=== PATIENT | male | born 1960 | race Caucasian/White ===

== ENCOUNTER 2020-05-27 01:04 | Outpatient (CLI) | payer BC, SELFPAY ==
[2020-05-27 19:05] LABS: SARS-CoV-2 RNA PCR Negative
== END 2020-05-27 01:05 | disposition home or self-care (01) ==
LOC: ANHCOVIDDT 01:04
PROVIDERS: Visit Provider Internal Medicine Cardiovascular Disease
DX: Z01.812 Encounter for preprocedural laboratory examination (principal); Z20.828 Contact with and (suspected) exposure to other viral communicable diseases
CPT/HCPCS: 87635; C9803; U0003

== ENCOUNTER 2020-05-29 05:20 | Day surgery (SDC) | payer BC, SELFPAY ==
[2020-05-28 16:38] VITALS: BMI 25.4
[2020-05-29] VITALS (16 sets, daily range): BP systolic 116–161; BP diastolic 71–98; PULSE 62–83; RESP 11–20; TEMP 36.1–36.9; O2SAT 98–100; BMI 25.2
[2020-05-29 07:50] LABS: Basophils Percent Auto 0.6 % (0.2-1.2); Eosinophils Absolute Auto 0.4 K/mm3 (0-0.3); Hemoglobin 13.7 g/dL (14.0-18.0); Immature Granulocyte Absolute 0.02 K/mm3 (0.00-0.031); Immature Granulocyte Percent A 0.3 % (0-0.5); Lymphocytes Absolute Auto 3.08 K/mm3 (0.9-3.2); Lymphocytes Percent Auto 43.9 % (18.3-44.2); Mean Corpuscular HGB Conc 33.4 g/dl (32-36); Mean Corpuscular Hemoglobin 29.6 pg (26-34); Mean Corpuscular Volume 88.6 fl (80-100); Mean Platelet Volume 9.3 fl (7.4-10.4); Monocytes Absolute Auto 0.7 K/mm3 (0.1-0.6); Monocytes Percent Auto 9.3 % (2.6-8.5); Neutrophils Absolute Auto 2.9 K/mm3 (1.3-6.7); Neutrophils Percent Auto 40.9 % (45.5-73.1); Platelet Count Result 254 k/mm3 (150-375); Red Blood Count 4.63 M/mm3 (4.6-6.20); Red Cell Distribution Width 12.7 % (11.5-14.5)
--- NOTE | 2020-05-29 07:54 | SUR.PREOP ---
Patient arrives ambulatory to [facility] room 7 accompanied by . PIV access initiated, ordered labs obtained, VSS, and groins prepped for procedure.Patient updated on plan of care, including detailed description of procedure and after procedure care, and verbalizes understanding. All questions answered by RN. Will continue to closely monitor patient.
[2020-05-29 07:55] LABS: Anion Gap 8 mmol/L (8-16); Blood Urea Nitrogen 15 mg/dL (9-20); Calcium 9.4 mg/dL (8.4-10.2); Carbon Dioxide 25 mmol/L (22-30); Chloride 107 mmol/L (98-107); Estimated CRCL calculation 79 ml/min; Estimated Glomerular Filt Rate > 60; Glucose 108 mg/dL (75-110); Potassium 4.1 mmol/L (3.4-5.0); Sodium 140 mmol/L (137-145)
--- NOTE | 2020-05-29 08:25 | PM.IMHP ---
H&P: HPI History of Present Illness Date/Time: 05/29/20 08:25 Chief complaint: Abnormal Stress test, Chest Pain Narrative: Kai Granger is a 59 year old male Past medical history of anterior STEMI who presents here for cardiac catheterization because of chest pain and abnormal stress test. Started the chest pain about couple months ago. Denies shortness of breath, lower limb edema, dizziness, syncope, orthopnea, paroxysmal nocturnal dyspnea. Review of Systems Review of Systems: All systems reviewed & are unremarkable except as noted in HPI and below Constitutional: Constitutional: Denies chills, Denies fatigue, Denies fever(s), Denies headache(s) and Denies snoring Eyes: Eyes: Denies eye discharge and Denies loss of vision ENT: Denies dizziness, Denies headache(s), Denies nasal discharge and Denies sore throat Cardiovascular: Cardiovascular: Reports as per HPI, Reports chest pain, Reports chest pain with activity, Denies syncope, Denies rapid heart rate, Denies leg edema, Denies dyspnea, Denies dyspnea on exertion, Denies orthopnea and Denies paroxysmal nocturnal dyspnea Respiratory: Respiratory: Denies chest congestion, Denies cough, Denies dyspnea, Denies dyspnea on exertion, Denies snoring and Denies wheezing Gastrointestinal: Gastrointestinal: Denies abdominal pain, Denies diarrhea, Denies nausea and Denies vomiting Genitourinary: Genitourinary: Denies hematuria, Denies dysuria, Denies flank pain and Denies urinary frequency Musculoskeletal: Musculoskeletal: Denies myalgias, Denies arthralgias and Denies joint swelling Neurologic: Denies Abnormal speech present, Denies dizziness, Denies syncope, Denies headache(s), Denies focal weakness and Denies loss of vision Psychiatric: Psychiatric: Denies anxiety and Denies depression Endocrine: Endocrine: Denies cold intolerance, Denies fatigue and Denies heat intolerance Hematologic/Lymphatic: Hematologic/Lymphatic: Denies easy bleeding and Denies easy bruising Allergic/Immunologic: Allergic/Immunologic: Denies urticaria and Denies wheezing PMFSH Past Medical History Medical History (Updated 05/29/20 @ 08:26 by Cassie King MD) Alcohol abuse Anxiety CAD (coronary artery disease) HLD (hyperlipidemia) HTN (hypertension) Myocardial infarction Seasonal allergies Surgical History Surgical History H/O cardiac catheterization H/O heart artery stent x2 History of appendectomy Family History Family History Other Diabetes mellitus Family history of coronary artery disease Social History Social History Smoking status: Never smoker Second hand tobacco smoke exposure: Yes Alcohol intake: current Living arrangements: with family Meds Home Medications and Allergies Home Medications Medication Instructions Recorded Confirmed Type atorvastatin 40 mg PO DAILY 07/08/19 05/28/20 History bupropion HCl 300 mg PO QPM 07/08/19 05/28/20 History ezetimibe 10 mg PO DAILY 07/08/19 05/28/20 History hydroxyzine HCl 25 mg PO HS PRN 07/08/19 05/28/20 History aspirin 81 mg PO DAILY 05/28/20 05/28/20 History Allergies Allergy/AdvReac Type Severity Reaction Status Date / Time No Known Allergies Allergy Verified 03/28/20 13:09 Vital Signs Vital Signs - 24 hr 05/29/20 07:45 Temperature 36.4 C Pulse Rate 76 Respiratory Rate 15 Blood Pressure 139/85 Pulse Oximetry 99 Exam Const: General: cooperative, healthy appearing, comfortable, no acute distress and well developed Nutritional Appearance: well nourished Orientation/consciousness: patient oriented x3 HENMT: Head: normal to inspection, normocephalic and atraumatic Ears: hearing grossly normal bilaterally and external ears normal General nose exam: Normal external nose present and Normal nares present Face and sinus: normal fac
--- NOTE | 2020-05-29 08:27 | WPDMODSED ---
Moderate Sedation Note-Pt Data Patient Data Allergies Allergy/AdvReac Type Severity Reaction Status Date / Time No Known Allergies Allergy Verified 03/28/20 13:09 Home Medications Medication Instructions Recorded Confirmed Type atorvastatin 40 mg PO DAILY 07/08/19 05/28/20 History bupropion HCl 300 mg PO QPM 07/08/19 05/28/20 History ezetimibe 10 mg PO DAILY 07/08/19 05/28/20 History hydroxyzine HCl 25 mg PO HS PRN 07/08/19 05/28/20 History aspirin 81 mg PO DAILY 05/28/20 05/28/20 History Current Medications: Active Medications Sodium Chloride (Normal Saline Iv) 500 mls @ 100 mls/hr IV CONT .Q5H CAMILO Sedation/Anesthesia: No previous sedation/anesthesia problems (including family history). [facility] Past Medical History Medical History (Updated 05/29/20 @ 08:26 by Cassie King MD) Alcohol abuse Anxiety CAD (coronary artery disease) HLD (hyperlipidemia) HTN (hypertension) Myocardial infarction Seasonal allergies Surgical History Surgical History H/O cardiac catheterization H/O heart artery stent x2 History of appendectomy Family History Family History Other Diabetes mellitus Family history of coronary artery disease Social History Social History Smoking status: Never smoker Second hand tobacco smoke exposure: Yes Alcohol intake: current Living arrangements: with family Mod Sed Physical Exam Physical Exam Pre Procedural Exam: Normal: Appearance, Eyes, Ears, Nose, Neck, Throat, Airway, Lungs, Heart Size, Heart Rate, Heart Rhythm, Neuro Exam, Abdomen, Liver, Kidneys, Spleen, Breasts, Genitalia, Extremities and Skin Hours since solid foods: 8 Hours since liquid intake: 8 Internal Medicine - PN: Obj Da Vital Signs Vital Signs: Vital Signs - 24 hr 05/29/20 07:45 Temperature 36.4 C Pulse Rate 76 Respiratory Rate 15 Blood Pressure 139/85 Pulse Oximetry 99 Meds/Results Medications: Active Medications Generic Name Dose Route Start Last Admin Trade Name Freq PRN Reason Stop Dose Admin Sodium Chloride 500 mls @ 100 mls/hr 05/29/20 06:35 Normal Saline Iv IV CONT .Q5H CAMILO Labs CBC & Chem 7: 05/29/20 07:39 05/29/20 07:39 Labs: Laboratory Results - last 24 hr 05/29/20 05/29/20 07:39 07:39 WBC 7.0 RBC 4.63 Hgb 13.7 L D Hct 41.0 L MCV 88.6 MCH 29.6 MCHC 33.4 RDW 12.7 Plt Count 254 MPV 9.3 Immature Gran % (Auto) 0.3 Neut % (Auto) 40.9 L Lymph % (Auto) 43.9 [place] % (Auto) 9.3 H Eos % (Auto) 5.0 H Baso % (Auto) 0.6 Lymph # (Auto) 3.08 [place] # (Auto) 0.7 H Eos # (Auto) 0.4 H Baso # (Auto) 0.0 Abs Immat Gran (auto) 0.02 Absolute Neuts (auto) 2.9 Absolute Nucleated RBC 0.0 Nucleated RBC % 0.0 Sodium 140 Potassium 4.1 Chloride 107 Carbon Dioxide 25 Anion Gap 8 BUN 15 Creatinine 0.90 Estim Creat Clear Calc 79 Estimated GFR > 60 Glucose 108 Calcium 9.4 ASA Classification/Sedation ASA Classification/Sedation ASA Class: I Emergent: No Risks: Risks, benefits and alternatives explained and patient/family accepted plan for sedation. Patient re-evaluated immediately prior to sedation.
--- NOTE | 2020-05-29 08:27 | WPDCARDPROC ---
Cardiac Cath Procedure Note Date of procedure:: 05/29/20 Performing physician:: Cassie King MD Date of service May 29, 2020 Indication:: abnormal stress test, chest pain Brief clinical history:: this is 59-year-old patient with a past medical history STEMI with stenting of mid LAD, hypertension hyperlipidemia who was evaluated for a couple months history of chest pain and underwent stress test that shows ischemia. Procedure Procedure performed:: 1-Moderate sedation that started at 830 am and ended at 945 am with total duration 75 minutes using 4mg of Versed and 125mcg fentanyl. The registered nurse was Kassie Awan 2-Selective left and right coronary angiogram. 3-Left heart catheterization with measurement of LVEDP and measurement of gradient across aortic valve. 4-Right common femoral arterial angiogram. 5-Deployment of 6 [place]ian Angio-Seal. 7- deployment of a drug-eluting stent 3.25 x 38 to mid left circumflex artery. 8- Deployment drug-eluting stent 3 x 8 distal to the mid left circumflex artery in overlapping fashion. Sedation/Medication given:: Moderate sedation. Access site:: Right common femoral artery. Estimated blood loss:: 10cc Procedure note:: After informed consent patient was brought in to refuse laborer with the was draped and prepped in usual manner. Moderate sedation was given and the right groin was infiltrated using 1% lidocaine. Five Slovenian sheath was obtained using micropuncture needle and the modified Seldinger technique. Selective left coronary angiogram was done using JL4 catheter with the tip of the catheter placed in the left main coronary artery. Selective right coronary angiogram was done using JR4 catheter with the tip of the catheter placed to the right coronary artery. After that 5 Slovenian pigtail catheter was advanced across the aortic valve into the left ventricle with measurement of LVEDP and measurement of gradient across aortic valve. After that the 5 Slovenian sheath was upgraded to 6 Slovenian sheath. Then luge coronary wire 0.014 was advanced to the distal left circumflex artery. Then a 3 x 20 balloon was used to pre dilate the lesion in the mid left circumflex artery with 2 inflations each under nominal pressure for 20 seconds. after the deployment with drug-eluting stent 3.25 x 38 to mid left circumflex artery under nominal pressure for 20 seconds. after that postdilatation of the stent specially the midportion of the stent using 3.5x20 noncompliant balloon a with inflation done under 14 atmospheres for 20 seconds. after the deployment of a drug-eluting stent 3 x 8 distal to the mid left circumflex artery stent in overlapping fashion. Under nominal pressure for 20 seconds. the stent balloon was inflated to 22 atmospheres in overlapping area and that was done for about 20 seconds. Right common femoral arterial angiogram was done. Angio-Seal was deployed. Findings:: 1- left coronary artery is a large artery that divides into large LAD, large circumflex artery. Left main is free of disease. 2- left anterior descending artery is a large artery that runs and wraps around the apex. It has patent stents in the mid segment. 3- leftcircumflex artery is a large artery and has about 70% stenosis in the mid segment. from the midportion of that stenosis there is a medium-sized diagonal branch that has no disease in the ostium after putting the stent there was about 30% stenosis. 4- right coronary artery is large artery and dominant with diffuse minimal irregularities. 5- LVEDP was 10 mmhg and no gradient across aortic valve. 6- opening arterial pressure was 140/80 and closing pressure was 160/80 7- right femoral artery angiogram shows no significant disease in the right common femoral artery. Conclusion:: 1- successful stenting of mid left circumflex artery and distal left circumflex artery in overlapping fashion. 2- patent stents in the mid LAD. Assessment and Plan Additional Plan 1- continue aspirin and Brilinta.
[2020-05-29] MEDS: SODIUM CHLORIDE 0.9% IV 1,000 ML 125 ML IV CONT (10:00)
--- NOTE | 2020-05-29 10:00 | ECG_ITS ---
Measurements Intervals [place] Rate: 71 P: 60 CA: 162 QRS: 66 QRSD: 114 T: 67 QT: 376 QTc: 411 Interpretive Statements SINUS RHYTHM INCOMPLETE RIGHT BUNDLE BRANCH BLOCK BASELINE ARTIFACT- II, III BORDERLINE ECG Electronically Signed On 05-29-2020 13:27:22 CDT by Jay Humphrey D.O.
[2020-05-29] MEDS: TICAGRELOR 90 MG TABLET PO (20:15)
[2020-05-29] MEDS: ATORVASTATIN 40 MG TABLET PO (20:15)
[2020-05-29] MEDS: EZETIMIBE 10 MG TABLET PO (20:15)
[2020-05-30] VITALS (7 sets, daily range): BP systolic 116–136; BP diastolic 82–95; PULSE 71–79; RESP 15–20; TEMP 36.2–36.8; O2SAT 100
[2020-05-30 05:18] LABS: Basophils Percent Auto 0.3 % (0.2-1.2); Eosinophils Absolute Auto 0.4 K/mm3 (0-0.3); Eosinophils Percent Auto 4.5 % (0-4.4); Hematocrit 41.9 % (42.0-52.0); Hemoglobin 13.8 g/dL (14.0-18.0); Immature Granulocyte Absolute 0.02 K/mm3 (0.00-0.031); Immature Granulocyte Percent A 0.2 % (0-0.5); Lymphocytes Absolute Auto 2.79 K/mm3 (0.9-3.2); Lymphocytes Percent Auto 31.1 % (18.3-44.2); Mean Corpuscular HGB Conc 32.9 g/dl (32-36); Mean Corpuscular Hemoglobin 29.6 pg (26-34); Mean Corpuscular Volume 89.7 fl (80-100); Mean Platelet Volume 9.4 fl (7.4-10.4); Monocytes Absolute Auto 0.7 K/mm3 (0.1-0.6); Monocytes Percent Auto 8.2 % (2.6-8.5); Neutrophils Percent Auto 55.7 % (45.5-73.1); Platelet Count Result 234 k/mm3 (150-375); Red Blood Count 4.67 M/mm3 (4.6-6.20); Red Cell Distribution Width 12.8 % (11.5-14.5)
[2020-05-30 05:29] LABS: Anion Gap 7 mmol/L (8-16); Blood Urea Nitrogen 11 mg/dL (9-20); Calcium 9.4 mg/dL (8.4-10.2); Carbon Dioxide 28 mmol/L (22-30); Chloride 105 mmol/L (98-107); Estimated CRCL calculation 79 ml/min; Estimated Glomerular Filt Rate > 60; Glucose 102 mg/dL (75-110); Potassium 4.1 mmol/L (3.4-5.0); Sodium 140 mmol/L (137-145)
[2020-05-30] MEDS: ASPIRIN 81 MG CHEWABLE TABLET PO (08:35)
[2020-05-30] MEDS: TICAGRELOR 90 MG TABLET PO (08:35)
[2020-05-30] MEDS: buPROPion HCL XL (24 HR) 150 MG TABCR 300 MG PO (08:35)
--- NOTE | 2020-05-30 10:23 | PM.DS ---
DS: Admitting Diagnosis Admitting Diagnosis Admitting Diagnosis: Abnormal Stress test, Chest Pain DS: Discharge Diagnosis Discharge Diagnosis (1) Chest pain: Code(s): R07.9 - Chest pain, unspecified Status: Acute Assessment and Plan: Cardiac catheterization 05/29/[address] King with the findings of: 1- left coronary artery is a large artery that divides into large LAD, large circumflex artery. Left main is free of disease. 2- left anterior descending artery is a large artery that runs and wraps around the apex. It has patent stents in the mid segment. 3- leftcircumflex artery is a large artery and has about 70% stenosis in the mid segment. from the midportion of that stenosis there is a medium-sized diagonal branch that has no disease in the ostium after putting the stent there was about 30% stenosis. 4- right coronary artery is large artery and dominant with diffuse minimal irregularities. 5- LVEDP was 10 mmhg and no gradient across aortic valve. 6- opening arterial pressure was 140/80 and closing pressure was 160/80. 7- right femoral artery angiogram shows no significant disease in the right common femoral artery. He proceeded on to successful stenting of mid left circumflex artery and distal left circumflex artery in overlapping fashion. He was monitored overnight. He denied any chest pain, pressure, tightness or squeezing. No shortness of breath, lightheadedness or palpitations. Right groin site was without swelling or bleeding. Did have some ecchymosis at the puncture site. No femoral bruit. Distal pulses intact. (2) CAD (coronary artery disease), [place] coronary artery: Code(s): I25.10 - Atherosclerotic heart disease of [place] coronary artery without angina pectoris Status: Acute Assessment and Plan: As above DS: Summary Hospital Course Reason for hospitalization: Abnormal stress test Hospital Course: 59-year-old male with a remote history ST-elevation myocardial infarction with stenting to the LAD presented for cardiac catheterization due to chest discomfort and an abnormal stress test. Cardiac catheterization was performed on 05/29/[address] King. See results above. He presented on to stenting of the circumflex. He was observed overnight. Vital signs were stable. Right groin site was without swelling or bleeding. Was ecchymoses at this site. No femoral bruit. Distal pulses intact. He was discharged home in stable and pain-free condition. Status at Discharge Functional status at discharge: independent ambulation Overall status at discharge: patient is back to baseline Time Spent with Patient Time attestation: Total time spent providing and/or coordinating discharge services: 10 minutes in the room discussing follow-up appointment and activity restrictions. 10 minutes to do discharge so orders. 10 minutes to do discharge summary. Total time for discharge: 30 minutes. Time spent: Less than 30 minutes Exam Const: General: cooperative, healthy appearing, comfortable, no acute distress and well developed Nutritional Appearance: well nourished Orientation/consciousness: patient oriented x3 HENMT: Head: normal to inspection, normocephalic and atraumatic Ears: hearing grossly normal bilaterally General nose exam: Normal external nose present and Normal nares present Face and sinus: normal facial exam and no erythema Mouth: Yes moist mucous membranes Eyes: General: appearance normal, both eyes and all related structures Neck: Neck: normal visual inspection and full ROM Chest: Chest palpation & inspection: normal inspection of the chest Resp: Effort & Inspection: normal respiratory effort and not labored Auscultation: clear to auscultation bilaterally, no crackles, no rales and no wheezes Cardio: Jugular venous distension: no JVD Rate: regular rate Rhythm: regular rhythm Heart sounds: S
--- NOTE | 2020-05-30 11:39 | PC.NURSE ---
1045-pt given D/C orders and instructions. Questions answered and verbalized understanding. AOx4. PIV removed intact. Groin soft and non-tender, no evidence of bleeding or hematoma noted. Strong right pedal pulse noted. Taken via wheelchair to waiting vehicle. No distress noted or verbalized at time of departure.
== END 2020-05-30 10:50 | disposition home or self-care (01) ==
LOC: ANHCATHLAB 08:14 → ANHCPC 16:01
PROVIDERS: PCP Family Medicine; Visit Provider Internal Medicine Cardiovascular Disease
PROC: 4A023N7 Measurement of Cardiac Sampling and Pressure, Left Heart, Percutaneous Approach (ICD-10-PCS; CPT 93452; principal; 2020-05-29 08:30)
PROC: (CPT 92928; 2020-05-29 08:30)
DX: I25.10 Atherosclerotic heart disease of native coronary artery without angina pectoris (principal); R94.39 Abnormal result of other cardiovascular function study; R07.9 Chest pain, unspecified; I25.2 Old myocardial infarction; I10 Essential (primary) hypertension; E78.5 Hyperlipidemia, unspecified; Z95.5 Presence of coronary angioplasty implant and graft; F41.9 Anxiety disorder, unspecified
CPT/HCPCS: 36415; 80048; 85025; 93458; A9270; C1725; C1760; C1769; C1874; C1887; C1894; C9600; G0269; J0583; J1644; J2250; J3010; J7030; J7040

== ENCOUNTER 2020-11-13 15:57 | Outpatient (CLI) | payer BC, SELFPAY | END 2020-11-13 15:58 | disposition home or self-care (01) | LOC: ANHCOVIDVC 15:57 | PROVIDERS: PCP Family Medicine | DX: Z23 Encounter for immunization (principal) | CPT/HCPCS: 0001A; 91300 ==

== ENCOUNTER 2020-12-04 15:59 | Outpatient (CLI) | payer BC, SELFPAY | END 2020-12-04 16:00 | disposition home or self-care (01) | LOC: ANHCOVIDVC 15:59 | PROVIDERS: PCP Family Medicine | DX: Z23 Encounter for immunization (principal) | CPT/HCPCS: 0002A; 91300 ==

== ENCOUNTER → 2021-04-02 05:55 | Outpatient (CLI) | payer BC, SELFPAY ==
[2021-04-03 18:14] LABS: SARS-CoV-2 RNA PCR Positive
== END ==
PROVIDERS: PCP Family Medicine; Visit Provider Family Medicine
DX: U07.1 COVID-19 (principal)
CPT/HCPCS: C9803; U0003; U0005

== ENCOUNTER 2022-03-08 00:16 | Day surgery (SDC) | payer BC, SELFPAY ==
[2022-02-24 13:17] VITALS: BMI 25.0
[2022-03-08 07:41] VITALS: BP 132/62; PULSE 73; RESP 18; TEMP 36.5; O2SAT 100
[2022-03-08] MEDS: LACTATED RINGERS 1,000 ML 150 ML IV CONT (07:43)
--- NOTE | 2022-03-08 08:05 | P.PNAN_ITS ---
Anes - Initial Pre Proc Eval Procedure: Operation Date: 03/08/22 08:30 Proposed Procedures p Screening Colonoscopy - Boogie Quinones MD Date/Time: 03/08/22 08:05 Surgeon: Boogie Quinones MD Pre Op Diagnosis: neoplasm screening Patient Data Age: 61 Gender: M Height: 1.75 m Weight: 74.6 kg Last Vital Signs Temp 97.7 F 03/08/22 07:41 Pulse 73 03/08/22 07:41 Resp 18 03/08/22 07:41 BP 132/62 03/08/22 07:41 Pulse Ox 100 03/08/22 07:41 O2 Del Method Room Air 03/08/22 07:41 Allergies Allergy/AdvReac Type Severity Reaction Status Date / Time No Known Allergies Allergy Verified 02/24/22 13:17 Home Medications Medication Instructions Recorded Confirmed Type bupropion HCl 300 mg 24 hr tablet, 300 mg PO QPM 07/08/19 02/24/22 History extended release ezetimibe 10 mg tablet 10 mg PO HS 07/08/19 02/24/22 History aspirin 81 mg tablet 81 mg PO DAILY 05/28/20 02/24/22 History nitroglycerin 0.4 mg sublingual 0.4 mg sublingual Q5M PRN chest 05/30/20 03/08/22 Rx tablet pain #25 tabs cholecalciferol (vitamin D3) 1,250 1,250 mcg PO WEEKLY #12 tabs 11/17/21 02/24/22 Rx mcg (50,000 unit) tablet atorvastatin 20 mg tablet 20 mg PO HS 02/24/22 02/24/22 History Patient hx anesthesia problems: none Family hx anesthesia problems: none Results Review: All pre-operative results and documents have been reviewed as part of the pre- operative evaluation. [facility] Past Medical History Medical History Alcohol abuse Anxiety CAD (coronary artery disease) Depression Dyslipidemia HLD (hyperlipidemia) Myocardial infarction Seasonal allergies Surgical History Surgical History H/O heart artery stent (~05/2020) x2 - 05/2020, 11/2016 History of appendectomy (~2006) Family History Family History Other Diabetes mellitus Family history of coronary artery disease Social History Social History Smoking status: Never smoker Second hand tobacco smoke exposure: Yes Alcohol intake: never Substance use: never Substance use type: does not use Living arrangements: with family Gender identity (if verbalized by the patient): Male Spiritual care concerns: No Anes - Eval Final PreProcedure Day of Procedure 03/08/22 08:05 Patient weight: normal Heart: regular rate and rhythm Lungs: clear to auscultation Airway: Mallampati scale class II Neurological: alert and oriented Last oral intake: >/= 8 hours ASA classification: III Emergent: no Anesthetic plan: proceed Anesthesia type and monitoring: general GIVS and standard monitoring Results Review: All pre-operative results and documents have been reviewed as part of the pre- operative evaluation. Informed Consent: The patient's anesthetic plan and its attendant risks and benefits were discussed with the patient/family/POA. Questions were solicited and answers provided to the satisfaction of the patient/family/POA.
--- NOTE | 2022-03-08 08:34 | PM.HPGS ---
History of Present Illness History of Present Illness Consent: Risks, benefits, and alternatives have been discussed and questions answered. Patient agrees to proceed with procedure. Chief complaint: neoplasm screening Narrative: Kai Granger is a 61 year old male here for first screening colonoscopy Review of Systems Constitutional: Constitutional: Denies headache(s) and Denies weakness Eyes: Eyes: Denies blurry vision ENT: Reports Normal hearing present, Denies headache(s) and Denies neck pain Cardiovascular: Cardiovascular: Denies chest pain and Denies dyspnea Respiratory: Respiratory: Denies dyspnea Gastrointestinal: Gastrointestinal: Reports no additional gastrointestinal complaints Genitourinary: Genitourinary: Denies dysuria Musculoskeletal: Musculoskeletal: Denies neck pain Integumentary/Breasts: Skin/Breast: Denies dry skin Neurologic: Reports Normal hearing present, Denies headache(s) and Denies weakness Psychiatric: Psychiatric: Denies anxiety Endocrine: Endocrine: Denies change in body appearance Hematologic/Lymphatic: Hematologic/Lymphatic: Denies easy bleeding Allergic/Immunologic: Allergic/Immunologic: Denies urticaria [facility] Past Medical History Medical History (Updated 03/08/22 @ 08:34 by Boogie Quinones MD) Alcohol abuse Anxiety CAD (coronary artery disease) Colon cancer screening Depression Dyslipidemia HLD (hyperlipidemia) Myocardial infarction Seasonal allergies Surgical History Surgical History H/O heart artery stent (~05/2020) x2 - 05/2020, 11/2016 History of appendectomy (~2006) Family History Family History Other Diabetes mellitus Family history of coronary artery disease Social History Social History Smoking status: Never smoker Second hand tobacco smoke exposure: Yes Alcohol intake: never Substance use: never Substance use type: does not use Living arrangements: with family Gender identity (if verbalized by the patient): Male Spiritual care concerns: No Meds Home Medications and Allergies Home Medications Medication Instructions Recorded Confirmed Type bupropion HCl 300 mg 24 hr tablet, 300 mg PO QPM 07/08/19 02/24/22 History extended release ezetimibe 10 mg tablet 10 mg PO HS 07/08/19 02/24/22 History aspirin 81 mg tablet 81 mg PO DAILY 05/28/20 02/24/22 History nitroglycerin 0.4 mg sublingual 0.4 mg sublingual Q5M PRN chest 05/30/20 03/08/22 Rx tablet pain #25 tabs cholecalciferol (vitamin D3) 1,250 1,250 mcg PO WEEKLY #12 tabs 11/17/21 02/24/22 Rx mcg (50,000 unit) tablet atorvastatin 20 mg tablet 20 mg PO HS 02/24/22 02/24/22 History Allergies Allergy/AdvReac Type Severity Reaction Status Date / Time No Known Allergies Allergy Verified 02/24/22 13:17 Vital Signs Vital Signs - 24 hr 03/08/22 07:41 Temperature 97.7 F Pulse Rate 73 Respiratory Rate 18 Blood Pressure 132/62 Pulse Oximetry 100 Oxygen Delivery Room Air Exam Const: General: comfortable and no acute distress HENMT: General nose exam: Normal nares present Eyes: General: appearance normal, both eyes and all related structures Neck: Neck: no JVD Resp: Auscultation: clear to auscultation bilaterally Cardio: Rate: regular rate Rhythm: regular rhythm GI: Inspection: non-distended GI Palp: Yes Soft to palpation Skin: General skin exam: normal color Neuro: General: gait normal Speech: normal speech Extrem: General: normal to inspection Psych: Mental Status: mental status grossly normal Assessment and Plan Assessment and plan (1) Colon cancer screening: Code(s): Z12.11 - Encounter for screening for malignant neoplasm of colon Status: Acute Assessment and Plan: colonoscopy
[2022-03-08 08:55] VITALS: BP 99/56; PULSE 74; RESP 24; O2SAT 96
[2022-03-08 09:05] VITALS: BP 105/73; PULSE 70; RESP 19; O2SAT 95
[2022-03-08 09:15] VITALS: BP 98/54; PULSE 62; RESP 19; O2SAT 96
== END 2022-03-08 09:20 | disposition home or self-care (01) ==
PROVIDERS: PCP Family Medicine; Visit Provider Internal Medicine Gastroenterology
PROC: 0DJD8ZZ Inspection of Lower Intestinal Tract, Via Natural or Artificial Opening Endoscopic (ICD-10-PCS; CPT 45378; principal; 2022-03-08 08:30)
DX: Z12.11 Encounter for screening for malignant neoplasm of colon (principal); K57.30 Diverticulosis of large intestine without perforation or abscess without bleeding; K64.8 Other hemorrhoids; F41.9 Anxiety disorder, unspecified; I25.10 Atherosclerotic heart disease of native coronary artery without angina pectoris; F32.A Depression, unspecified; E78.5 Hyperlipidemia, unspecified; I25.2 Old myocardial infarction; Z79.82 Long term (current) use of aspirin; Z95.5 Presence of coronary angioplasty implant and graft
CPT/HCPCS: 45378; J2704; J7120

== ENCOUNTER 2024-02-14 15:01 | Outpatient (CLI) | payer BC, SELFPAY ==
--- NOTE | ~2024-02-14 | XR_ITS ---
3 VIEWS LUMBAR SPINE Ordering provider: Candie Benoit History: . Low back pain . Comparison: None. FINDINGS: VERTEBRAL BODIES: No visible fracture or subluxation. Attempt of lumbarization of S1. DISK SPACES: Narrowing of the disc L3-L4 and L4-L5. SOFT TISSUES: Normal. IMPRESSION: No acute osseous abnormality lumbar spine. Narrowing of the disc L3-L4 and L4-L5. Reviewed, dictated and finalized at location A.
== END 2024-02-14 15:02 ==
DX: M48.061 Spinal stenosis, lumbar region without neurogenic claudication (principal)
CPT/HCPCS: 72100